=== PATIENT | male | born 1975 | race Caucasian/White ===

== ENCOUNTER 2022-03-01 16:58 | Emergency (ER) | payer SELFPAY ==
[~2022-03-01] VITALS: Ht 185.4 cm; Wt 81.0 kg
[2022-03-01] MEDS ORDERED: FAMOTIDINE 20MG TABLET PO SCH (18:15)
[2022-03-01] MEDS ORDERED: METHYLPREDNISOLONE SOD SUCC 125 MG/2 ML VIAL IM ONE (18:15)
[2022-03-01] MEDS ORDERED: EPIN0.3P3 IM (18:43)
[2022-03-01] MEDS ORDERED: MED4 MT (18:43)
[2022-03-01 19:18] VITALS: BP 103/88
== END 2022-03-01 19:19 | disposition home or self-care (01) ==
LOC: ER 16:58
DX: T63.441A Toxic effect of venom of bees, accidental (unintentional), initial encounter (principal); R22.0 Localized swelling, mass and lump, head; Z91.030 Bee allergy status; Y92.018 Other place in single-family (private) house as the place of occurrence of the external cause
CPT/HCPCS: 96372; 99283; J2930